=== PATIENT | female | born 1970 | race Caucasian/White ===

== ENCOUNTER 2016-09-03 05:31 | Emergency (ER) | payer MEDICAID ==
[~2016-09-03] VITALS: Ht 152.4 cm; Wt 107.2 kg
[~2016-09-03 05:31] MED LIST: ALB.5NB20 IH; AMOX1TAB PO; SULF1TAB31 PO
[2016-09-03 05:39] VITALS: Ht 152.4 cm; Wt 107.2 kg
[2016-09-03] MEDS ORDERED: ALBUTEROL 0.083% (NEB) 2.5 MG/3 ML AMP HHN STA (06:05)
[2016-09-03] MEDS ORDERED: DEXAMETHASONE 10 MG/ML 1 ML INJ IM ONE (06:30)
[2016-09-03] MEDS ORDERED: IPRATROPIUM (NEB) 0.5 MG/2.5 ML AMP HHN ONE (06:30)
--- NOTE | 2016-09-03 06:35 | ERD ---
ER Documentation Chief Complaint Date/Time DATE: 09/03/16 TIME: 06:34 Chief Complaint SOB x3 days similar to asthma attacks per pt HPI This is a 46-year-old female that presents to the ER with shortness of breath for the last 3 days. Patient has a known history of asthma and states that for the last 3 days she has had wheezing. Patient also complains of a cough that started yesterday. Patient admits to clear sputum. She denies any hemoptysis. Patient denies any chest pain. She denies any recent travel, leg redness or swelling, surgery or oral contraceptive use. Patient denies any fevers or chills. She has not been taking medications for her asthma. ROS 12 point review of systems was done, all negative except per HPI. Medications Home Meds Active Scripts Prednisone* (Prednisone*) 20 Mg Tab, 40 MG PO DAILY for 3 Days, TAB Prov:LIZETTE SZYMANSKI 09/03/16 Albuterol Sulfate* (Proair HFA*) 8.5 Gm Hfa.aer.ad, 2 PUFF INH Q4, #1 INHALER Prov:LIZETTE SZYMANSKI 09/03/16 Sulfamethoxazole-Trimethoprim (Bactrim DS Tablet) 800-160 Mg Tab, 2 TAB PO BID for 14 Days, TAB Prov:BETTYE BASS NP 02/28/15 Amoxicillin/Potassium Clav (AMOXICILLIN-CLAV ER 1,000-62.5) 1 Each Tab.er.12h, 2 EACH PO BID for 14 Days Prov:BETTYE BASS NP 02/28/15 Reported Medications Albuterol Sulfate* (Albuterol Sulfate* Neb) 20 Ml Nebu, 20 ML IH 10/09/12 Allergies Allergies: Coded Allergies: No Known Allergy (Unverified , 06/13/14) PMhx/Soc History of Surgery: Yes (CS) Anesthesia Reaction: No Hx Neurological Disorder: No Hx Respiratory Disorders: Yes (ASTHMA) Hx Cardiac Disorders: No Hx Psychiatric Problems: No Hx Miscellaneous Medical Probl: No (DM) Hx Alcohol Use: No Hx Substance Use: No Hx Tobacco Use: No Smoking Status: Never smoker Physical Exam Vitals Vital Signs Date Time Temp Pulse Resp B/P Pulse Ox O2 Delivery O2 Flow Rate FiO2 09/03/16 06:28 94 18 92 21 09/03/16 05:39 97.9 96 24 142/61 94 Physical Exam GENERAL: The patient is well-developed, well-nourished, in no acute distress. NECK: Cervical spine is non tender with no step off. Supple, no nuchal rigidity HEENT: Atraumatic. Pupils equal, round and reactive to light. Extraocular muscles are grossly intact. Conjunctivae pink, no discharge. Bilateral tympanic membranes are clear with no evidence of erythema, effusion or dulling of the light reflex. Tonsilar erythema with no exudates or uvular deviation. Clear rhinorrhea. RESPIRATORY: Expiratory wheezes in all lung hopper. No rales rhonchi or crackles. HEART: Regular rate and rhythm. No murmurs, clicks, rubs or gallops. EXTREMITIES: No clubbing or cyanosis. Full range of motion. Grossly neurovascularly intact. NEUROLOGIC: Alert and oriented. SKIN: There is no rash. The skin is warm and dry. Results 24 hrs Current Medications Medications (Trade) Dose Ordered Sig/Yelena Route PRN Reason Start Time Stop Time Status Last Admin Dose Admin Dexamethasone (Decadron) 10 mg ONCE ONCE IM 09/03/16 06:30 09/03/16 06:31 DC 09/03/16 06:12 Albuterol (Proventil 0.083% (Neb)) 10 mg ONCE STAT HHN 09/03/16 06:05 09/03/16 06:08 DC 09/03/16 06:23 Ipratropium [place] (Atrovent 0.02% (Neb)) 0.5 mg ONCE ONCE HHN 09/03/16 06:30 09/03/16 06:31 DC 09/03/16 06:23 Procedures/MDM Nebulizing treatment was done with albuterol and Atrovent. Patient was given a Decadron injection without any complications. I reexamined patient and patient stated that she felt significantly better. Her wheezing was improved. This is a 46-year-old female presents to the ER with shortness of breath and wheezing for the last 3 days. Patient has a known history of asthma. Patient' s wheezing was improved here in the ER she felt significantly better. Patient does have a cough, asthma is likely exacerbated by upper respiratory infection. Suspicion for cardiac etiology is low. Patient has denied any chest pain. Suspicion for pulmonary embolism is low. There is no evidence of pneumonia, or pneumothorax on chest x-ray. Patient is well-appearing and afebrile. She will be sent home with albuterol and with prednisone. She is to follow-up with her primary care doctor within 1-2 days or return to ER sooner if symptoms worsen. My medical decision making shared with patient she understands and agrees with plan. Departure Diagnosis: Primary Impression: Asthma attack Condition: Stable LIZETTE SZYMANSKI Sep 03, 2016 06:35
--- NOTE | 2016-09-03 07:24 | RADRPT ---
PROCEDURE: Chest Radiograph. CLINICAL INDICATION: Cough TECHNIQUE: Single frontal chest radiograph. COMPARISON: Chest radiograph 10/09/2012 FINDINGS: The cardiomediastinal silhouette is within normal limits. No infiltrate or effusion is seen. Th e bones are intact. IMPRESSION: 1. Unremarkable chest radiograph. RPTAT: HJBF .Moy Johnson MD, MD Date Time Electronically viewed and signed by .Moy Johnson MD, on 09/03/2016 07:24 .B/
[2016-09-03] MEDS ORDERED: PRED20TA PO (07:27)
[2016-09-03] MEDS ORDERED: ALBU8.5H3 INH (07:27)
[2016-09-03 07:33] VITALS: BP 136/66; PULSE 96; RESP 20; TEMP 98.1
== END 2016-09-03 07:34 | disposition home or self-care (01) ==
LOC: FTE 05:31
DX: J45.901 Unspecified asthma with (acute) exacerbation (principal); E11.9 Type 2 diabetes mellitus without complications
CPT/HCPCS: 71010; 94644; 96372; J1100; Z7502; Z7610

== ENCOUNTER 2016-09-11 04:13 | Emergency (ER) | payer MEDICAID ==
[~2016-09-11] VITALS: Ht 142.2 cm; Wt 106.5 kg
[~2016-09-11 04:13] MED LIST changes: +ALBU8.5H3 INH; +PRED20TA PO
[2016-09-11 04:16] VITALS: Ht 142.2 cm; Wt 106.5 kg
[2016-09-11] MEDS ORDERED: METHYLPREDNISOLONE 125 MG INJ IM STA (04:29)
[2016-09-11] MEDS ORDERED: ALBUTEROL 0.5% (NEB) 2.5 MG/0.5 ML AMP INH STA (04:29)
[2016-09-11] MEDS ORDERED: IPRATROPIUM (NEB) 0.5 MG/2.5 ML AMP NEB STA (04:29)
--- NOTE | 2016-09-11 04:38 | ERD ---
ER Documentation Chief Complaint Date/Time DATE: 09/11/16 TIME: 04:37 Chief Complaint Asthma attack started at 0400. Albuterol taken HPI 46-year-old female presents here in emergency department for complaints of wheezing and cough started at 4 AM today, patient has been having cough since yesterday. Patient does not cough up any phlegm or blood. Patient does not have any dyspnea on exertion or dyspnea on lying down. Patient has been taking albuterol with only mild relief. Patient denies any sick contacts. Patient denies any fever or chills. ROS All systems reviewed and are negative except as per history of present illness. Medications Home Meds Active Scripts Cetirizine Hcl* (Zyrtec*) 10 Mg Capsule, 10 MG PO DAILY, #30 TAB.CHEW Prov:GOLDIE CHEN NP 09/11/16 Khdjusulpiq-S-Hdoceamypa Hb* (Guaifenesin* DM Syrup) 120 Ml Syrup, 10 ML PO Q4H Y for COUGH, #120 ML Prov:GOLDIE CHEN NP 09/11/16 Prednisone* (Prednisone*) 50 Mg Tablet, 50 MG PO DAILY for 5 Days, TAB Prov:GOLDIE CHEN NP 09/11/16 Beclomethasone Dip (Qvar 40) 1 Puff Inha, 2 PUFF INH BID, #1 INHALER Prov:GOLDIE CHEN NP 09/11/16 Albuterol Sulfate* (Proair HFA*) 8.5 Gm Hfa.aer.ad, 2 PUFF INH Q4H Y for WHEEZING AND SOB, #1 INHALER Prov:GOLDIE CHEN NP 09/11/16 Prednisone* (Prednisone*) 20 Mg Tab, 40 MG PO DAILY for 3 Days, TAB Prov:LIZETTE SZYMANSKI 09/03/16 Albuterol Sulfate* (Proair HFA*) 8.5 Gm Hfa.aer.ad, 2 PUFF INH Q4, #1 INHALER Prov:LIZETTE SZYMANSKI 09/03/16 Sulfamethoxazole-Trimethoprim (Bactrim DS Tablet) 800-160 Mg Tab, 2 TAB PO BID for 14 Days, TAB Prov:BETTYE BASS NP 02/28/15 Amoxicillin/Potassium Clav (AMOXICILLIN-CLAV ER 1,000-62.5) 1 Each Tab.er.12h, 2 EACH PO BID for 14 Days Prov:BETTYE BASS NP 02/28/15 Reported Medications Albuterol Sulfate* (Albuterol Sulfate* Neb) 20 Ml Nebu, 20 ML IH 10/09/12 Allergies Allergies: Coded Allergies: No Known Allergy (Unverified , 06/13/14) PMhx/Soc History of Surgery: Yes (CS X1 ) Anesthesia Reaction: No Hx Neurological Disorder: No Hx Respiratory Disorders: Yes (ASTHMA) Hx Cardiac Disorders: No Hx Psychiatric Problems: No Hx Miscellaneous Medical Probl: Yes (PRE DM) Hx Alcohol Use: No Hx Substance Use: No Hx Tobacco Use: No Smoking Status: Never smoker FmHx Family History: No coronary disease, No diabetes, No other Physical Exam Vitals Vital Signs Date Time Temp Pulse Resp B/P Pulse Ox O2 Delivery O2 Flow Rate FiO2 09/11/16 04:34 113 20 93 21 09/11/16 04:16 99.0 110 22 142/83 95 Physical Exam GENERAL: The patient is well developed and appropriate for usual state of health, in no apparent distress. CHEST: Diffuse wheezing and tightness bilaterally. There are no rales, crackles or rhonchi. HEART: Regular rate and rhythm. No murmurs, clicks, rubs or gallops. No S3 or S4. ABDOMEN: Soft, nontender and nondistended. Good bowel sounds. No rebound or guarding. No gross peritonitis. No gross organomegaly or masses. No Ponce sign or McBurney point tenderness. BACK: No midline or flank tenderness. EXTREMITIES: Equal pulses bilaterally. There is no peripheral clubbing, cyanosis or edema. No focal swelling or erythema. Full range of motion. Grossly neurovascularly intact. NEURO: Alert and oriented. Cranial nerves 2-12 intact. Motor strength in all 4 extremities with 5/5 strength. Sensation grossly intact. Normal speech and gait. SKIN: There is no apparent rash or petechia. The skin is warm and dry. HEMATOLOGIC AND LYMPHATIC: There is no evidence of excessive bruising or lymphedema. No gross cervical, axillary, or inguinal lymphadenopathy. Results 24 hrs Current Medications Medications (Trade) Dose Ordered Sig/Yelena Route PRN Reason Start Time Stop Time Status Last Admin Dose Admin Ipratropium [place] (Atrovent 0.02% (Neb)) 0.5 mg ONCE STAT NEB 09/11/16 04:29 09/11/16 04:31 DC 09/11/16 04:34 Albuterol (Proventil 0.5% (Neb)) 10 mg ONCE STAT INH 09/11/16 04:29 09/11/16 04:31 DC 09/11/16 04:34 Methylprednisolone Sodium Succinate (Solu-Medrol) 125 mg ONCE STAT IM 09/11/16 04:29 09/11/16 04:31 DC 09/11/16 04:39 Breathing treatment of albuterol and Atrovent Solu-Medrol IM injection was given here in emergency department, after treatment, patient's lungs sounds are clear and patient's oxygenation is better. Patient verbalized feeling much better. Procedures/MDM Medical Decision Making: Patient symptoms are most likely consistent with acute asthma exacerbation with acute bronchitis, which viral in origin. There is low suspicion for Pneumonia at this time since patients lungs sounds are clear, patient O2 saturation is normal and patient doesnt show any respiratory distress. Patients chest xray doesnt show infiltrates or any other cardiopulmonary emergencies at this time. There is low suspicion for other cardiopulmonary emergencies at this time such as CHF, Pulmonary Embolism, Pneumothorax, Aortic Aneurysm or any other cardiopulmonary emergencies at this time. There is low suspicion for sepsis. Patient appears well and is hemodynamically stable. Fever is controlled with medicines. Disposition: Home. Condition: Stable Prescriptions: Qvar,Albuterol, Guaifenasin DM, Zyrtec, Prednisone. Instructions: Patient is advised to take medications as prescribed. Patient is advised to rest. Patient advised to increase fluid intake, do humidifier at home and if possible, do salt water gargles. Patient is advised that if symptoms are worse, shortness of breath, uncontrolled fever, stridor, vomiting, worst signs and symptoms to return to emergency department immediately. Otherwise, patient is advised to follow up with primary doctor in 5-7 days. Departure Diagnosis: Primary Impression: Asthma with acute exacerbation Asthma severity: unspecified severity Qualified Code: J45.901 - Asthma with acute exacerbation, unspecified asthma severity Additional Impression: Acute bronchitis Bronchitis organism: unspecified organism Qualified Code: J20.9 - Acute bronchitis, unspecified organism Condition: Stable GOLDIE CHEN NP Sep 11, 2016 04:38
--- NOTE | 2016-09-11 05:07 | RADRPT ---
PROCEDURE: CHEST - 1 VIEW CLINICAL INDICATION: 46-year-old female with shortness of breath and asthma. TECHNIQUE: A single frontal AP portable view of the chest was performed. The images were reviewed on a PACS workstation. COMPARISON: Chest x-ray September 03, 2016. FINDINGS: The cardiomediastinal silhouette is within normal limits. There is a shallow inspiration. There is mild bibasilar subsegmental atelectasis. There is no evidence for an infiltrate. There is no evid ence for congestive heart failure. There is no evidence for pneumothorax. The osseous structures are intact. IMPRESSION: Shallow inspiration with mild bibasilar subsegmental atelectasis. .Rafat Rincon MD, Date Time Electronically viewed and signed by .Rafat Rincon MD, on 09/11/2016 05:07 .Melinda/
[2016-09-11] MEDS ORDERED: PRED50TA PO (05:17)
[2016-09-11] MEDS ORDERED: GUAI120S26 PO (05:17)
[2016-09-11] MEDS ORDERED: ALBU8.5H3 INH (05:17)
[2016-09-11] MEDS ORDERED: QVAR40 INH (05:17)
[2016-09-11] MEDS ORDERED: CETI10CA PO (05:17)
[2016-09-11 06:02] VITALS: BP 136/75; PULSE 113; RESP 21; TEMP 98.7
== END 2016-09-11 06:02 | disposition home or self-care (01) ==
LOC: FTE 04:13
DX: J45.901 Unspecified asthma with (acute) exacerbation (principal); J20.9 Acute bronchitis, unspecified
CPT/HCPCS: 71010; 94644; 96372; J2930; Z7502; Z7610

== ENCOUNTER 2016-11-29 07:10 | Emergency (ER) | payer MEDICAID ==
[~2016-11-29] VITALS: Ht 157.5 cm; Wt 107.5 kg
[~2016-11-29 07:10] MED LIST changes: +CETI10CA PO; +GUAI120S26 PO; +PRED50TA PO; +QVAR40 INH
[2016-11-29 07:14] VITALS: Ht 157.5 cm; Wt 107.5 kg
[2016-11-29] MEDS ORDERED: ALBUTEROL 0.083% (NEB) 2.5 MG/3 ML AMP HHN STA (07:34)
[2016-11-29] MEDS ORDERED: IPRATROPIUM (NEB) 0.5 MG/2.5 ML AMP HHN ONE (08:00)
[2016-11-29] MEDS ORDERED: METHYLPREDNISOLONE 125 MG INJ IM ONE (08:00)
[2016-11-29] MEDS ORDERED: ALBU18HF INHALATION (09:35)
[2016-11-29] MEDS ORDERED: PRED20TA PO (09:35)
--- NOTE | 2016-11-29 09:38 | ERD ---
ER Documentation Chief Complaint Date/Time DATE: 11/29/16 TIME: 09:37 Chief Complaint coughing and asthma, no relief w/ inhaler use @ home HPI This 38-year-old female complains of cough and wheezing for last 2 days. She denies productive sputum, fevers. She is using inhaler at home without relief. She denies chest pain or vomiting or abdominal pain. ROS All systems reviewed and are negative except as per history of present illness. Medications Home Meds Active Scripts Albuterol Sulfate* (Ventolin HFA*) 18 Gm Hfa.aer.ad, 2 PUFF INHALATION Q4H for 5 Days, #1 INHALER Prov:JE JIMENEZ MD 11/29/16 Prednisone* (Prednisone*) 20 Mg Tab, 60 MG PO DAILY for 6 Days, #15 TAB 60 mg by mouth for 3 days then 40 mg by mouth for 3 days. Start November 30, 2016 Prov:JE JIMENEZ MD 11/29/16 Cetirizine Hcl* (Zyrtec*) 10 Mg Capsule, 10 MG PO DAILY, #30 TAB.CHEW Prov:GOLDIE CHEN NP 09/11/16 Mlydcxvneur-Q-Xtibgwpqzh Hb* (Guaifenesin* DM Syrup) 120 Ml Syrup, 10 ML PO Q4H Y for COUGH, #120 ML Prov:GOLDIE CHEN NP 09/11/16 Prednisone* (Prednisone*) 50 Mg Tablet, 50 MG PO DAILY for 5 Days, TAB Prov:GOLDIE CHEN NP 09/11/16 Beclomethasone Dip (Qvar 40) 1 Puff Inha, 2 PUFF INH BID, #1 INHALER Prov:GOLDIE CHEN NP 09/11/16 Albuterol Sulfate* (Proair HFA*) 8.5 Gm Hfa.aer.ad, 2 PUFF INH Q4H Y for WHEEZING AND SOB, #1 INHALER Prov:GOLDIE CHEN NP 09/11/16 Prednisone* (Prednisone*) 20 Mg Tab, 40 MG PO DAILY for 3 Days, TAB Prov:LIZETTE SZYMANSKI 09/03/16 Albuterol Sulfate* (Proair HFA*) 8.5 Gm Hfa.aer.ad, 2 PUFF INH Q4, #1 INHALER Prov:LIZETTE SZYMANSKI 09/03/16 Sulfamethoxazole-Trimethoprim (Bactrim DS Tablet) 800-160 Mg Tab, 2 TAB PO BID for 14 Days, TAB Prov:BETTYE BASS Emily TRASH TRUCK DRIVER 02/28/15 Amoxicillin/Potassium Clav (AMOXICILLIN-CLAV ER 1,000-62.5) 1 Each Tab.er.12h, 2 EACH PO BID for 14 Days Prov:BASSBETTYE NAVARRO I. TRASH TRUCK DRIVER 02/28/15 Reported Medications Albuterol Sulfate* (Albuterol Sulfate* Neb) 20 Ml Nebu, 20 ML IH 10/09/12 Allergies Allergies: Coded Allergies: No Known Allergy (Unverified , 11/29/16) PMhx/Soc History of Surgery: Yes (CS X1 ) Anesthesia Reaction: No Hx Neurological Disorder: No Hx Respiratory Disorders: Yes (ASTHMA) Hx Cardiac Disorders: No Hx Psychiatric Problems: No Hx Miscellaneous Medical Probl: Yes (PRE DM) Hx Alcohol Use: No Hx Substance Use: No Hx Tobacco Use: No Smoking Status: Never smoker Physical Exam Vitals Vital Signs Date Time Temp Pulse Resp B/P Pulse Ox O2 Delivery O2 Flow Rate FiO2 11/29/16 07:57 80 19 96 21 11/29/16 07:14 98.4 92 22 135/63 97 Physical Exam Const: [] Alert, [id number]-xslinyyvp per Head: Atraumatic Eyes: Normal Conjunctiva ENT: Normal External Ears, Nose and Mouth. TMs and oropharynx normal. Neck: Full range of motion..~ No meningismus. Resp: Diffuse wheezing and rhonchi without retractions. Cardio: Regular rate and rhythm, no murmurs Abd: Soft, non tender, non distended. Normal bowel sounds Skin: No petechiae or rashes Back: No midline or flank tenderness Ext: No cyanosis, or edema. No calf swelling or Homans sign per Neur: Awake and alert Psych: Normal Mood and Affect Results 24 hrs Current Medications Medications (Trade) Dose Ordered Sig/Yelena Route PRN Reason Start Time Stop Time Status Last Admin Dose Admin Methylprednisolone Sodium Succinate (Solu-Medrol) 125 mg ONCE ONCE IM 11/29/16 08:00 11/29/16 08:01 DC 11/29/16 07:40 Albuterol (Proventil 0.083% (Neb)) 5 mg ONCE STAT HHN 11/29/16 07:34 11/29/16 07:36 DC 11/29/16 07:55 Ipratropium [place] (Atrovent 0.02% (Neb)) 0.5 mg ONCE ONCE HHN 11/29/16 08:00 11/29/16 08:01 DC 11/29/16 07:56 Procedures/MDM Patient is given albuterol Atrovent treatment 1 and had improved breath sounds felt better after observation treatment. She was given Solu-Medrol 125 mg IM. Chest X-ray 1V Interpreted by me: Soft Tissue: No acute abnormalities Bones: No acute abnormalities Mediastinum/Cardiac Silhouette/Lungs: [No acute abnormalities]. Impression- normal 1 view chest x-ray Patient presents with asthma exacerbation without signs or symptoms of respiratory distress, hypoxemia, pneumonia, acute coronary syndrome, additional causes of presenting complaints. She will treated with a course of prednisone taper and Ventolin refill. The patient was stable with no new complaints during the ER course. Clinically, there is no current evidence to suggest meningitis, sepsis, acute abdomen, pneumonia, acute coronary syndrome, pulmonary embolism, or any other emergent condition appearing to require further evaluation or hospitalization. The patient should certainly return for any new or worsening symptoms per the aftercare instructions. They should otherwise follow-up with her primary care doctor for reevaluation this week. Departure Diagnosis: Primary Impression: Asthma attack Condition: Stable Patient Instructions: Asthma, Acute (Adult) Additional Instructions: Cheque otro vez con gruber doctor primario en el proximo mireles or regresa para mas o nueva simptomas. JE JIMENEZ MD Nov 29, 2016 09:38
--- NOTE | 2016-11-29 09:43 | RADRPT ---
PROCEDURE: XR Chest. CLINICAL INDICATION: Shortness of breath. TECHNIQUE: Single frontal view of the chest was obtained. COMPARISON: Chest x-ray 09/11/2016 04:58 a.m. FINDINGS: The soft tissues are generous. Degenerative osteophytes are present in the thoracic spine. The hea rt, cardiomediastinal silhouette and hilar structures are normal. The pulmonary vasculature is ariana l. There is a left-sided aorta. The lungs are clear. The costophrenic angles are normal. IMPRESSION: 1. Spondylosis of the thoracic spine with no evidence of active cardiopulmonary disease. Stable jennifer st compared to 09/11/2016. RPTAT:AAJJ Physician Tanya Date Time Electronically viewed and signed by Kenneth Mcmahon Physician on 11/29/2016 09:43 JEF/
== END 2016-11-29 09:44 | disposition home or self-care (01) ==
LOC: FTE 07:10
DX: J45.901 Unspecified asthma with (acute) exacerbation (principal)
CPT/HCPCS: 71010; 94664; 96372; J2930; Z7502; Z7610

== ENCOUNTER 2017-05-03 07:37 | Emergency (ER) | payer MEDICAID ==
[~2017-05-03] VITALS: Ht 160 cm; Wt 106.9 kg
[~2017-05-03 07:37] MED LIST changes: +ALBU18HF INHALATION
[2017-05-03 07:39] VITALS: Ht 160 cm; Wt 106.9 kg
[2017-05-03] MEDS ORDERED: ALBUTEROL 0.083% (NEB) 2.5 MG/3 ML AMP HHN STA (07:47)
[2017-05-03] MEDS ORDERED: METHYLPREDNISOLONE 125 MG INJ IM ONE (08:00)
[2017-05-03] MEDS ORDERED: IPRATROPIUM (NEB) 0.5 MG/2.5 ML AMP HHN ONE (08:00)
[2017-05-03] MEDS ORDERED: PRED20TA PO (08:27)
[2017-05-03] MEDS ORDERED: ALBU8.5H3 INH (08:27)
--- NOTE | 2017-05-03 08:51 | ERD ---
ER Documentation Chief Complaint Chief Complaint asthma x3 days, no relief w/inhaler HPI This 47-year-old female presents with wheezing for last 3 days. She has a history of asthma and is using her albuterol at home without relief. She denies any fevers, productive mucus, chest pain, vomiting, abdominal pain. ROS All systems reviewed and are negative except as per history of present illness. Medications Home Meds Active Scripts Albuterol Sulfate* (Proair HFA*) 8.5 Gm Hfa.aer.ad, 2 PUFF INH Q4, #1 INHALER Prov:JE JIMENEZ MD 05/03/17 Prednisone* (Prednisone*) 20 Mg Tab, 60 MG PO DAILY for 5 Days, TAB 60 mg by mouth for 2 days, then 40 mg of mouth for 3 days. Start May 04, 2017 Prov:JE JIMENEZ MD 05/03/17 Albuterol Sulfate* (Ventolin HFA*) 18 Gm Hfa.aer.ad, 2 PUFF INHALATION Q4H for 5 Days, #1 INHALER Prov:JE JIMENEZ MD 11/29/16 Prednisone* (Prednisone*) 20 Mg Tab, 60 MG PO DAILY for 6 Days, #15 TAB 60 mg by mouth for 3 days then 40 mg by mouth for 3 days. Start November 30, 2016 Prov:JE JIMENEZ MD 11/29/16 Cetirizine Hcl* (Zyrtec*) 10 Mg Capsule, 10 MG PO DAILY, #30 TAB.CHEW Prov:GOLDIE CHEN NP 09/11/16 Nkblmnotqpo-E-Bxwslihzqv Hb* (Guaifenesin* DM Syrup) 120 Ml Syrup, 10 ML PO Q4H Y for COUGH, #120 ML Prov:GOLDIE CHEN NP 09/11/16 Prednisone* (Prednisone*) 50 Mg Tablet, 50 MG PO DAILY for 5 Days, TAB Prov:GOLDIE CHEN NP 09/11/16 Beclomethasone Dip (Qvar 40) 1 Puff Inha, 2 PUFF INH BID, #1 INHALER Prov:GOLDIE CHEN NP 09/11/16 Albuterol Sulfate* (Proair HFA*) 8.5 Gm Hfa.aer.ad, 2 PUFF INH Q4H Y for WHEEZING AND SOB, #1 INHALER Prov:GOLDIE CHEN NP 09/11/16 Prednisone* (Prednisone*) 20 Mg Tab, 40 MG PO DAILY for 3 Days, TAB Prov:LIZETTE SZYMANSKI Va 09/03/16 Albuterol Sulfate* (Proair HFA*) 8.5 Gm Hfa.aer.ad, 2 PUFF INH Q4, #1 INHALER Prov:LIZETTE SZYMANSKI Va 09/03/16 Sulfamethoxazole-Trimethoprim (Bactrim DS Tablet) 800-160 Mg Tab, 2 TAB PO BID for 14 Days, TAB Prov:BETTYE BASS NP 02/28/15 Amoxicillin/Potassium Clav (AMOXICILLIN-CLAV ER 1,000-62.5) 1 Each Tab.er.12h, 2 EACH PO BID for 14 Days Prov:BETTYE BASS I. DRUG AND ALCOHOL COUNSELOR 02/28/15 Reported Medications Albuterol Sulfate* (Albuterol Sulfate* Neb) 20 Ml Nebu, 20 ML IH 10/09/12 Allergies Allergies: Coded Allergies: No Known Allergy (Unverified , 05/03/17) PMhx/Soc History of Surgery: Yes (CS X1 ) Anesthesia Reaction: No Hx Neurological Disorder: No Hx Respiratory Disorders: Yes (ASTHMA) Hx Cardiac Disorders: No Hx Psychiatric Problems: No Hx Miscellaneous Medical Probl: Yes (PRE DM) Hx Alcohol Use: Yes (Social) Hx Substance Use: No Hx Tobacco Use: No Physical Exam Vitals Vital Signs Date Time Temp Pulse Resp B/P Pulse Ox O2 Delivery O2 Flow Rate FiO2 05/03/17 08:04 85 18 96 21 05/03/17 07:39 97.1 86 18 144/99 95 Physical Exam Const: [] Alert, ffm-vcz-pjetpeakv, obese. Head: Atraumatic Eyes: Normal Conjunctiva ENT: Normal External Ears, Nose and Mouth. Neck: Full range of motion..~ No meningismus. Resp: Clear to auscultation bilaterally. Diffuse wheezing without rales or retractions. Cardio: Regular rate and rhythm, no murmurs Abd: Soft, non tender, non distended. Normal bowel sounds Skin: No petechiae or rashes Back: No midline or flank tenderness Ext: No cyanosis, or edema Neur: Awake and alert Psych: Normal Mood and Affect Results 24 hrs Current Medications Medications (Trade) Dose Ordered Sig/Yelena Route PRN Reason Start Time Stop Time Status Last Admin Dose Admin Methylprednisolone Sodium Succinate (Solu-Medrol) 125 mg ONCE ONCE IM 05/03/17 08:00 05/03/17 08:01 DC 05/03/17 07:53 Albuterol (Proventil 0.083% (Neb)) 5 mg ONCE STAT N 05/03/17 07:47 05/03/17 07:49 DC 05/03/17 08:04 Ipratropium [place] (Atrovent 0.02% (Neb)) 0.5 mg ONCE ONCE HHN 05/03/17 08:00 05/03/17 08:01 DC 05/03/17 08:04 Procedures/MDM Patient is given albuterol treatment to 125 mg IM. Patient clear lungs after observation treatment without rales or wheezing. Patient presents with signs and symptoms of an acute uncomplicated asthma exacerbation without signs of pneumonia, respiratory status or hypoxemia. She will be treated with prednisone , albuterol refill, primary care follow-up and return precautions. The patient was stable with no new complaints during the ER course. Clinically, there is no current evidence to suggest meningitis, sepsis, acute abdomen, pneumonia, acute coronary syndrome, pulmonary embolism, or any other emergent condition appearing to require further evaluation or hospitalization. The patient should certainly return for any new or worsening symptoms per the aftercare instructions. They should otherwise follow-up with her primary care doctor for reevaluation this week. Departure Diagnosis: Primary Impression: Asthma attack Asthma severity: unspecified severity Asthma persistence: unspecified Qualified Code: J45.901 - Exacerbation of asthma, unspecified asthma severity, unspecified whether persistent Condition: Stable Patient Instructions: Asthma, Acute (Adult) Referrals: [facility] (PCP) Additional Instructions: Cheque otro vez con gruber doctor primario en el proximo mireles or regresa para mas o nueva simptomas. JE JIMENEZ MD May 03, 2017 08:51
[2017-05-03 08:53] VITALS: BP 130/82; PULSE 93; RESP 18; TEMP 97.6
== END 2017-05-03 08:50 | disposition home or self-care (01) ==
LOC: FTE 07:37
DX: J45.901 Unspecified asthma with (acute) exacerbation (principal)
CPT/HCPCS: 94664; 96372; J2930; Z7502; Z7610

== ENCOUNTER 2018-01-15 11:42 | Emergency (ER) | END 2018-01-15 15:44 | disposition home or self-care (01) ==

== ENCOUNTER 2018-05-10 14:23 | Emergency (ER) | END 2018-05-10 16:17 | disposition home or self-care (01) ==

== ENCOUNTER 2018-05-14 10:02 | Emergency (ER) | END 2018-05-14 10:45 | disposition home or self-care (01) ==

== ENCOUNTER 2018-06-06 18:21 | Emergency (ER) | payer MEDICAID ==
[~2018-06-06] VITALS: Ht 142.2 cm; Wt 113.4 kg
[~2018-06-06 18:21] MED LIST changes: -ALBU8.5H3 INH; +ALBU8.5H8 INH; +GUAI-173 PO; +IBUP-1542 PO; +MED4DP PO
[2018-06-06 18:25] VITALS: Ht 142.2 cm; Wt 113.4 kg
[2018-06-06] MEDS ORDERED: SODI30SP2 NS (19:00)
[2018-06-06] MEDS ORDERED: D-ME118S24 PO (19:00)
[2018-06-06] MEDS ORDERED: IBUP-1542 PO (19:00)
[2018-06-06] MEDS ORDERED: TYL500 PO (19:00)
--- NOTE | 2018-06-06 19:07 | ERD ---
ER Documentation Chief Complaint Chief Complaint cough/sore throat x 3 days HPI 48-year-old female with history of diabetes and asthma presents for cough, fever, sore throat times 3 days. She states that the fever subjective. The cough is noted to be productive of greenish phlegm. She did not try to take any medications at home. Sore throat was rated 4 out of 10. No other modifying factors. ROS All systems reviewed and are negative except as per history of present illness. Medications Home Meds Active Scripts Sodium Chloride (Saline Nasal [place]) 30 Ml [place], 30 ML NS BID PRN for NASAL CONGESTION, #1 BOTTLE Prov:ТАТЬЯНА JUNIOR DO 06/06/18 D-Methorphan Hb/P-Epd HCl/Bpm (Uleekpddri-Yafgixutigl-Sf Syr) 118 Ml Syrup, 5 ML PO Q4H PRN for COUGH, #1 BOTTLE Prov:ТАТЬЯНА JUNIOR DO 06/06/18 Acetaminophen* (Tylenol*) 500 Mg Tab, 500 MG PO Q4H PRN for MILD PAIN LEVEL 1-3, #30 TAB Prov:ТАТЬЯНА JUNIOR DO 06/06/18 Ibuprofen* (Motrin*) 600 Mg Tab, 600 MG PO Q6H PRN for PAIN AND OR ELEVATED TEMP, #30 TAB Prov:ТАТЬЯНА JUNIOR DO 06/06/18 Ibuprofen* (Motrin*) 600 Mg Tab, 600 MG PO Q6, #15 TAB Prov:JE JIMENEZ MD 05/14/18 Sulfamethoxazole/Trimethoprim* (Bactrim Ds* Tablet) 1 Each Tablet, 1 TAB PO BID for 5 Days, #10 TAB Prov:JE JIMENEZ MD 05/14/18 Albuterol Sulfate* (Ventolin HFA*) 18 Gm Hfa.aer.ad, 2 PUFF INHALATION Q4H, #1 INHALER Prov:JE JIMENEZ MD 05/10/18 Sulfamethoxazole/Trimethoprim* (Bactrim Ds* Tablet) 1 Each Tablet, 1 TAB PO BID for 7 Days, #14 TAB Prov:JE JIMENEZ MD 05/10/18 Prednisone* (Prednisone*) 20 Mg Tab, 40 MG PO DAILY for 4 Days, TAB Start May 11, 2018 Prov:JE JIMENEZ MD 05/10/18 Guaifenesin* (Tussin*) 100 Mg/5 Ml Syrup, 200 MG PO Q6 PRN for COUGH for 3 Days, ML Prov:LIZETTE SZYMANSKI 01/15/18 Albuterol Sulfate* (Ventolin HFA*) 18 Gm Hfa.aer.ad, 2 PUFF INHALATION Q4H, #1 I NHALER Prov:LIZETTE SZYMANSKI 01/15/18 Methylprednisolone* (Medrol* DOSE PACK) 4 Mg/Dose-Pack Tab.ds.pk, 4 MG PO . DIRECTED for 6 Days, PACKET Prov:LIZETTE SZYMANSKI 01/15/18 Albuterol Sulfate* (Proair HFA*) 8.5 Gm Hfa.aer.ad, 2 PUFF INH Q4, #1 INHALER Prov:JE JIMENEZ MD 05/03/17 Prednisone* (Prednisone*) 20 Mg Tab, 60 MG PO DAILY for 5 Days, TAB 60 mg by mouth for 2 days, then 40 mg of mouth for 3 days. Start May 04, 2017 Prov:JE JIMENEZ MD 05/03/17 Albuterol Sulfate* (Ventolin HFA*) 18 Gm Hfa.aer.ad, 2 PUFF INHALATION Q4H for 5 Days, #1 INHALER Prov:JE JIMENEZ MD 11/29/16 Prednisone* (Prednisone*) 20 Mg Tab, 60 MG PO DAILY for 6 Days, #15 TAB 60 mg by mouth for 3 days then 40 mg by mouth for 3 days. Start November 30, 2016 Prov:JE JIMENEZ MD 11/29/16 Cetirizine Hcl* (Zyrtec*) 10 Mg Capsule, 10 MG PO DAILY, #30 TAB.CHEW Prov:GOLDIE CHEN NP 09/11/16 Xarzltqdynp-Y-Lurmcpzrgb Hb* (Guaifenesin* DM Syrup) 120 Ml Syrup, 10 ML PO Q4H PRN for COUGH, #120 ML Prov:GOLDIE CHEN NP 09/11/16 Prednisone* (Prednisone*) 50 Mg Tablet, 50 MG PO DAILY for 5 Days, TAB Prov:GOLDIE CHEN NP 09/11/16 Beclomethasone Dip (Qvar 40) 1 Puff Inha, 2 PUFF INH BID, #1 INHALER Prov:GUSTAVOGOLDIE. BEAD BUILDER 09/11/16 Albuterol Sulfate* (Proair HFA*) 8.5 Gm Hfa.aer.ad, 2 PUFF INH Q4H PRN for WHEEZING AND SOB, #1 INHALER Prov:GOLDIE CHEN GABBI Tucker. BEAD BUILDER 09/11/16 Prednisone* (Prednisone*) 20 Mg Tab, 40 MG PO DAILY for 3 Days, TAB Prov:LIZETTE SZYMANSKI 09/03/16 Albuterol Sulfate* (Proair HFA*) 8.5 Gm Hfa.aer.ad, 2 PUFF INH Q4, #1 INHALER Prov:LIZETTE SZYMANSKI 09/03/16 Sulfamethoxazole-Trimethoprim (Bactrim DS Tablet) 800-160 Mg Tab, 2 TAB PO BID for 14 Days, TAB Prov:BETTYE BASS I. BEAD BUILDER 02/28/15 Amoxicillin/Potassium Clav (AMOXICILLIN-CLAV ER 1,000-62.5) 1 Each Tab.er.12h, 2 EACH PO BID for 14 Days Prov:BETTYE BASS I. BEAD BUILDER 02/28/15 Reported Medications Albuterol Sulfate* (Albuterol Sulfate* Neb) 20 Ml Nebu, 20 ML IH 10/09/12 Allergies Allergies: Coded Allergies: No Known Allergy (Unverified , 06/06/18) PMhx/Soc History of Surgery: Yes (CS X1 ) Anesthesia Reaction: No Hx Neurological Disorder: No Hx Respiratory Disorders: Yes (ASTHMA) Hx Cardiac Disorders: No Hx Psychiatric Problems: No Hx Miscellaneous Medical Probl: Yes (PRE DM) Hx Alcohol Use: Yes (Socially) Hx Substance Use: No Hx Tobacco Use: No Smoking Status: Never smoker Physical Exam Vitals Vital Signs Date Temp Pulse Resp B/P (MAP) Pulse Ox O2 O2 Flow FiO2 Time Delivery Rate 06/06/18 98.8 114 16 141/82 97 19:11 (101) 06/06/18 99.9 115 16 174/88 98 18:25 (116) Physical Exam Const: No acute distress Head: Atraumatic Eyes: Normal Conjunctiva ENT: Normal External Ears, bilateral tympanic memory intact without erythema or bulging noted, nasal congestion noted, oral examination reveals no tonsillar exudates, there is mild erythema posterior, oral mucosa slightly dry. Neck: Full range of motion. No meningismus. Resp: Clear to auscultation bilaterally, no wheezing rales or rhonchi. Cardio: mild tachycardia, no murmurs Skin: No petechiae or rashes Back: No midline or flank tenderness Ext: No cyanosis, or edema Neur: Awake and alert Psych: Normal Mood and Affect Procedures/MDM Medical Decision Making: Differential diagnosis includes but not limited to upper respiratory infection, pneumonia, sepsis. Patient appeared well on physical examination, nontoxic appearing. Lungs were clear to auscultation bilaterally. There is low suspicion for pneumonia, sepsis. Patient likely has an upper respiratory infection, likely viral. Discussed symptomatic treatment with patient who agrees with plan. Patient noted to be tachycardic in the ER. She was noted to be slightly dry on physical exam. The tachycardia is likely from mild dehydration. Patient advised regarding importance of hydration. Patient given prescription for Motrin, Tylenol, Bromfed, nasal saline spray. Patient advised to follow up with PCP in 1-2 days. Patient advised to return to ED for new or worsening symptoms. Patient stable on discharge from the ED. Disclaimer: Inadvertent spelling and grammatical errors are likely due to EHR/dictation software use and do not reflect on the overall quality of patient care. Also, please note that the electronic time recorded on this note does not necessarily reflect the actual time of the patient encounter. Departure Diagnosis: Primary Impression: URI (upper respiratory infection) URI type: unspecified URI Qualified Codes: J06.9 - Acute upper respiratory infection, unspecified Condition: Fair Patient Instructions: Preventing Common Respiratory Infections Referrals: [facility] YOU HAVE RECEIVED A MEDICAL SCREENING EXAM AND THE RESULTS INDICATE THAT YOU DO NOT HAVE A CONDITION THAT REQUIRES URGENT TREATMENT IN THE EMERGENCY DEPARTMENT. FURTHER EVALUATION AND TREATMENT OF YOUR CONDITION CAN WAIT UNTIL YOU ARE SEEN IN YOUR DOCTORS OFFICE WITHIN THE NEXT 1-2 DAYS. IT IS YOUR RESPONSIBILITY TO MAKE AN APPOINTMENT FOR FOLOW-UP CARE. IF YOU HAVE A PRIMARY DOCTOR --you should call your primary doctor and schedule an appointment IF YOU DO NOT HAVE A PRIMARY DOCTOR YOU CAN CALL OUR PHYSICIAN REFERRAL HOTLINE AT IF YOU CAN NOT AFFORD TO SEE A PHYSICIAN YOU CAN CHOSE FROM THE FOLLOWING [facility] [address] [facility] [address] [facility] [address] [facility] [address] [facility] [address] [facility]. [facility] [address] Additional Instructions: Llame al doctor MAANA y markus harshad JOSE MANUEL PARA DENTRO DE 1-2 LENNON.Dgale a la secretaria que nosotros le instruimos hacer esta jose manuel.Avise o llame si gruber condicin se empeora antes de la jose manuel. Regresa aqui si peor o no mejor. ТАТЬЯНА JUNIOR DO Jun 06, 2018 19:07
[2018-06-06 19:11] VITALS: BP 141/82; PULSE 114; RESP 16
== END 2018-06-06 19:15 | disposition home or self-care (01) ==
LOC: FTE 18:21
DX: J06.9 Acute upper respiratory infection, unspecified (principal); E11.9 Type 2 diabetes mellitus without complications; J45.909 Unspecified asthma, uncomplicated
CPT/HCPCS: 99282

== ENCOUNTER 2018-07-25 09:56 | Emergency (ER) | payer MEDICAID ==
[~2018-07-25] VITALS: Ht 162.6 cm; Wt 119.5 kg
[~2018-07-25 09:56] MED LIST changes: +D-ME118S24 PO; +SODI30SP2 NS; +TYL500 PO
[2018-07-25 09:59] VITALS: Ht 162.6 cm; Wt 119.5 kg
[2018-07-25] MEDS ORDERED: IPRATROPIUM (NEB) 0.5 MG/2.5 ML AMP NEB STA (10:26)
[2018-07-25] MEDS ORDERED: SOD CHLORIDE 0.9% 1,000 ML IV STA (10:26)
[2018-07-25] MEDS ORDERED: ALBUTEROL 0.083% (NEB) 2.5 MG/3 ML AMP NEB STA (10:26)
[2018-07-25] MEDS ORDERED: DEXAMETHASONE 10 MG/ML 1 ML INJ IV STA (10:26)
--- NOTE | 2018-07-25 10:28 | ERD ---
ER Documentation Chief Complaint Chief Complaint cough , sob x 3 days HPI 48-year-old female with history of asthma, presents to the emergency department, complaining of 3 days with worsening of cough, wheezing and dyspnea on exertion. The patient also reports subjective fever and general malaise associated with a left lower extremity erythema, induration and pain. The patient has a history of chronic left lower extremity cellulitis. Last course of antibiotics more than 6 months ago. ROS All systems reviewed and are negative except as per history of present illness. Medications Home Meds Active Scripts Albuterol Sulfate* (Proair HFA*) 8.5 Gm Hfa.aer.ad, 2 PUFF INH Q4H PRN for WHEEZING AND SOB, #1 INHALER Prov:KESHA OBREGON MD 07/25/18 Prednisone* (Prednisone*) 20 Mg Tab, 60 MG PO DAILY for 5 Days, TAB Prov:KESHA OBREGON MD 07/25/18 Sulfamethoxazole/Trimethoprim* (Bactrim Ds* Tablet) 1 Each Tablet, 1 TAB PO BID, #20 TAB Prov:KESHA OBREGON MD 07/25/18 Sodium Chloride (Saline Nasal [place]) 30 Ml [place], 30 ML NS BID PRN for NASAL CONGESTION, #1 BOTTLE Prov:ТАТЬЯНА JUNIOR DO 06/06/18 D-Methorphan Hb/P-Epd HCl/Bpm (Hpqnbreril-Vhnawksttou-Tm Syr) 118 Ml Syrup, 5 ML PO Q4H PRN for COUGH, #1 BOTTLE Prov:ТАТЬЯНА JUNIOR DO 06/06/18 Acetaminophen* (Tylenol*) 500 Mg Tab, 500 MG PO Q4H PRN for MILD PAIN LEVEL 1-3, #30 TAB Prov:ТАТЬЯНА JUNIOR DO 06/06/18 Ibuprofen* (Motrin*) 600 Mg Tab, 600 MG PO Q6H PRN for PAIN AND OR ELEVATED TEMP, #30 TAB Prov:ТАТЬЯНА JUNIOR DO 06/06/18 Ibuprofen* (Motrin*) 600 Mg Tab, 600 MG PO Q6, #15 TAB Prov:JE JIMENEZ MD 05/14/18 Sulfamethoxazole/Trimethoprim* (Bactrim Ds* Tablet) 1 Each Tablet, 1 TAB PO BID for 5 Days, #10 TAB Prov:JE JIMENEZ MD 05/14/18 Albuterol Sulfate* (Ventolin HFA*) 18 Gm Hfa.aer.ad, 2 PUFF INHALATION Q4H, #1 INHALER Prov:JE JIMENEZ MD 05/10/18 Sulfamethoxazole/Trimethoprim* (Bactrim Ds* Tablet) 1 Each Tablet, 1 TAB PO BID for 7 Days, #14 TAB Prov:JE JIMENEZ MD 05/10/18 Prednisone* (Prednisone*) 20 Mg Tab, 40 MG PO DAILY for 4 Days, TAB Start May 11, 2018 Prov:JE JIMENEZ MD 05/10/18 Guaifenesin* (Tussin*) 100 Mg/5 Ml Syrup, 200 MG PO Q6 PRN for COUGH for 3 Days, ML Prov:LIZETTE SZYMANSKI 01/15/18 Albuterol Sulfate* (Ventolin HFA*) 18 Gm Hfa.aer.ad, 2 PUFF INHALATION Q4H, #1 INHALER Prov:LIZETTE SZYMANSKI 01/15/18 Methylprednisolone* (Medrol* DOSE PACK) 4 Mg/Dose-Pack Tab.ds.pk, 4 MG PO . DIRECTED for 6 Days, PACKET Prov:LIZETTE SZYMANSKI 01/15/18 Albuterol Sulfate* (Proair HFA*) 8.5 Gm Hfa.aer.ad, 2 PUFF INH Q4, #1 INHALER Prov:JE JIMENEZ MD 05/03/17 Prednisone* (Prednisone*) 20 Mg Tab, 60 MG PO DAILY for 5 Days, TAB 60 mg by mouth for 2 days, then 40 mg of mouth for 3 days. Start May 04, 2017 Prov:JE JIMENEZ MD 05/03/17 Albuterol Sulfate* (Ventolin HFA*) 18 Gm Hfa.aer.ad, 2 PUFF INHALATION Q4H for 5 Days, #1 INHALER Prov:JE JIMENEZ MD 11/29/16 Prednisone* (Prednisone*) 20 Mg Tab, 60 MG PO DAILY for 6 Days, #15 TAB 60 mg by mouth for 3 days then 40 mg by mouth for 3 days. Start November 30, 2016 Prov:JE JIMENEZ MD 11/29/16 Cetirizine Hcl* (Zyrtec*) 10 Mg Capsule, 10 MG PO DAILY, #30 TAB.CHEW Prov:GOLDIE CHEN NP 09/11/16 Bybabohezva-N-Wdbesonssb Hb* (Guaifenesin* DM Syrup) 120 Ml Syrup, 10 ML PO Q4H PRN for COUGH, #120 ML Prov:GOLDIE CHEN NP 09/11/16 Prednisone* (Prednisone*) 50 Mg Tablet, 50 MG PO DAILY for 5 Days, TAB Prov:GOLDIE CHEN INTERNAL RECRUITER 09/11/16 Beclomethasone Dip (Qvar 40) 1 Puff Inha, 2 PUFF INH BID, #1 INHALER Prov:GOLDIE CHEN NP 09/11/16 Albuterol Sulfate* (Proair HFA*) 8.5 Gm Hfa.aer.ad, 2 PUFF INH Q4H PRN for WHEEZING AND SOB, #1 INHALER Prov:GOLDIE CHEN NP 09/11/16 Prednisone* (Prednisone*) 20 Mg Tab, 40 MG PO DAILY for 3 Days, TAB Prov:LIZETTE SZYMANSKI 09/03/16 Albuterol Sulfate* (Proair HFA*) 8.5 Gm Hfa.aer.ad, 2 PUFF INH Q4, #1 INHALER Prov:LIZETTE SZYMANSKI 09/03/16 Sulfamethoxazole-Trimethoprim (Bactrim DS Tablet) 800-160 Mg Tab, 2 TAB PO BID for 14 Days, TAB Prov:BETTYE BASS NP 02/28/15 Amoxicillin/Potassium Clav (AMOXICILLIN-CLAV ER 1,000-62.5) 1 Each Tab.er.12h, 2 EACH PO BID for 14 Days Prov:BETTYE BASS I. INTERNAL RECRUITER 02/28/15 Reported Medications Albuterol Sulfate* (Albuterol Sulfate* Neb) 20 Ml Nebu, 20 ML IH 10/09/12 Allergies Allergies: Coded Allergies: Penicillins (Verified Allergy, Unknown, rash, 07/25/18) PMhx/Soc History of Surgery: Yes (CS X1 ) Anesthesia Reaction: No Hx Neurological Disorder: No Hx Respiratory Disorders: Yes (ASTHMA) Hx Cardiac Disorders: No Hx Psychiatric Problems: No Hx Miscellaneous Medical Probl: Yes (PRE DM) Hx Alcohol Use: Yes (Socially) Hx Substance Use: No Hx Tobacco Use: No FmHx Family History: No diabetes, No coronary disease Physical Exam Vitals Vital Signs Date Temp Pulse Resp B/P (MAP) Pulse Ox O2 O2 Flow FiO2 Time Delivery Rate 07/25/18 98.3 105 18 132/62 100 Room Air 11:55 (85) 07/25/18 86 20 96 21 10:38 07/25/18 98.1 112 20 178/90 95 09:59 (119) Physical Exam Const: No acute distress Head: Atraumatic Eyes: Normal Conjunctiva ENT: Normal External Ears, Nose and Mouth. Neck: Full range of motion. No meningismus. Resp: Decreased respiratory sounds with expiratory wheezing to auscultation bilaterally Cardio: Regular rate and rhythm, no murmurs Abd: Soft, non tender, non distended. Normal bowel sounds Skin: No petechiae or rashes Back: No midline or flank tenderness Ext: Left lower extremity: Significant edema, erythema, the leg is warm to palpation, distal neurovascular exam intact Neur: Awake and alert Psych: Normal Mood and Affect Results 24 hrs Current Medications Medications Dose Sig/Yelena Start Time Status Last (Trade) Ordered Route PRN Stop Time Admin Dose Reason Admin Sodium 1,000 ml @ Q1H STAT 07/25/18 DC 07/25/18 Chloride 1,000 mls/hr IV 10:26 10:46 07/25/18 11:25 Albuterol 5 mg ONCE STAT 07/25/18 DC 07/25/18 (Proventil NEB 10:26 10:38 0.083% (Neb)) 07/25/18 10:30 Ipratropium 0.5 mg ONCE STAT 07/25/18 DC 07/25/18 [place] NEB 10:26 10:38 (Atrovent 07/25/18 10:31 0.02% (Neb)) 10 mg ONCE STAT 07/25/18 DC 07/25/18 Dexamethasone IV 10:26 10:46 (Decadron) 07/25/18 10:31 Ceftriaxone 50 ml @ ONCE ONCE 07/25/18 DC 07/25/18 Sodium 100 mls/hr IVPB 10:30 10:46 07/25/18 10:59 650 mg ONCE ONCE 07/25/18 DC 07/25/18 Acetaminophen PO 11:30 11:38 (Tylenol 07/25/18 11:31 Tab) Procedures/MDM At the time of discharge, vital signs stable, no respiratory distress. D ifferential diagnosis include but not limited to: Respiratory infection bacterial/viral/fungal. Asthma/COPD, pneumonitis, allergies, GERD. Less likely foreign body aspiration, cardiac related, aspiration pneumonia, malignancy. Physical examination and clinical presentation consistent most likely with acute asthma exacerbation with cellulitis of the left lower extremity During the ED course the patient remained stable, received a nebulized treatment, IV antibiotics and steroids in the ED presenting overall improvement of the symptoms, no new complaints. Clinical impression discussed with the patient who agrees with management. The patient is stable to be treated outpatient and will be discharged home. Some side effects of prescribed medications (headache, rash, nausea, vomiting, diarrhea, drowsiness, habituation, bleeding, hypertension, interactions with other medications) were reviewed. The patient was instructed to follow up with the primary care provider in the next 48h. If symptoms persist, worsen or new symptoms develop, then patient should return to the ED immediately. Disclaimer: Inadvertent spelling and grammatical errors are likely due to EHR/dictation software use and do not reflect on the overall quality of patient care. Also, please note that the electronic time recorded on this note does not necessarily reflect the actual time of the patient encounter. Departure Diagnosis: Primary Impression: Asthma exacerbation Additional Impression: Cellulitis of left lower extremity without foot Condition: Stable Additional Instructions: Muchas magdi por [facility] para gruber servicio. Esperamos que en gruber visita a la reggie de emergencia gruber problema medico haya sido solucionado y que se sienta mucho mejor. Para estar seguros que gruber mejoria sigue en proceso, le pedimos el favor de hacer harshad nae de seguimiento medico con gruber doctor primario en los proximos 2-4 mireles. Lleve con usted estos documentos y las medicinas recetadas. Si oracio sintomas empeoran, NO SE ESPERE, por favor regrese a reggie de emergencia INMEDIATAMENTE. En linda que usted no tenga un mdico de atencin primaria: Llame al mdico o clnica comunitaria de referencia que aparece abajo rowdy las horas de consultorio para hacer harshad nae para que le vean. CLINICAS: [facility] [phone] [facility] [phone] [facility] [phone] [address] [place] [id number] [phone] [place] [id number] [phone] [facility]. [phone] KESHA MENDEZ MD Jul 25, 2018 10:28
[2018-07-25] MEDS ORDERED: CEFTRIAXONE 1 GM/50 ML (PMX) 50 ML IVPB ONE (10:30)
[2018-07-25] MEDS ORDERED: ACETAMINOPHEN 325 MG TAB PO ONE (11:30)
[2018-07-25] MEDS ORDERED: SULF1TAB31 PO (11:31)
[2018-07-25] MEDS ORDERED: ALBU8.5H8 INH (11:31)
[2018-07-25] MEDS ORDERED: PRED20TA PO (11:31)
[2018-07-25 11:55] VITALS: BP 132/62; PULSE 105; RESP 18
== END 2018-07-25 11:56 | disposition home or self-care (01) ==
LOC: FTE 09:56
DX: J45.901 Unspecified asthma with (acute) exacerbation (principal); L03.116 Cellulitis of left lower limb
CPT/HCPCS: 94664; 96365; 96375; J0696; J1100; J7030; Z7502; Z7610

== ENCOUNTER 2018-08-30 22:20 | Emergency (ER) | payer MEDICAID ==
[~2018-08-30] VITALS: Ht 142.2 cm; Wt 111.0 kg
[2018-08-30 22:29] VITALS: Ht 142.2 cm; Wt 111.0 kg
--- NOTE | 2018-08-31 02:29 | ERD ---
ER Documentation Chief Complaint Chief Complaint SOB, COUGH X'S 3 DAYS HX OF ASTHMA; RAN OUT OF INHALER THURSDAY HPI 48-year-old female, with history of asthma, presents the emergency department, complaining of 3 days with upper respiratory symptoms including cough and wheezing. She run out of her inhaler 3 days ago. She denies chest pain, no fever or chills. ROS All systems reviewed and are negative except as per history of present illness. Medications Home Meds Active Scripts Albuterol Sulfate* (Proair HFA*) 8.5 Gm Hfa.aer.ad, 2 PUFF INH Q4H PRN for WHEEZING AND SOB, #1 INHALER Prov:KESHA OBREGON MD 07/25/18 Prednisone* (Prednisone*) 20 Mg Tab, 60 MG PO DAILY for 5 Days, TAB Prov:KESHA OBREGON MD 07/25/18 Sulfamethoxazole/Trimethoprim* (Bactrim Ds* Tablet) 1 Each Tablet, 1 TAB PO BID, #20 TAB Prov:KESHA OBREGON MD 07/25/18 Sodium Chloride (Saline Nasal [place]) 30 Ml [place], 30 ML NS BID PRN for NASAL CONGESTION, #1 BOTTLE Prov:ТАТЬЯНА JUNIOR DO 06/06/18 D-Methorphan Hb/P-Epd HCl/Bpm (Jzsctaljyk-Qbtuzstclpe-Xd Syr) 118 Ml Syrup, 5 ML PO Q4H PRN for COUGH, #1 BOTTLE Prov:ТАТЬЯНА JUNIOR DO 06/06/18 Acetaminophen* (Tylenol*) 500 Mg Tab, 500 MG PO Q4H PRN for MILD PAIN LEVEL 1-3, #30 TAB Prov:ТАТЬЯНА JUNIOR DO 06/06/18 Ibuprofen* (Motrin*) 600 Mg Tab, 600 MG PO Q6H PRN for PAIN AND OR ELEVATED TEMP, #30 TAB Prov:ТАТЬЯНА JUNIOR DO 06/06/18 Ibuprofen* (Motrin*) 600 Mg Tab, 600 MG PO Q6, #15 TAB Prov:JE JIMENEZ MD 05/14/18 Sulfamethoxazole/Trimethoprim* (Bactrim Ds* Tablet) 1 Each Tablet, 1 TAB PO BID for 5 Days, #10 TAB Prov:JE JIMENEZ MD 05/14/18 Albuterol Sulfate* (Ventolin HFA*) 18 Gm Hfa.aer.ad, 2 PUFF INHALATION Q4H, #1 INHALER Prov:JE JIMENEZ MD 05/10/18 Sulfamethoxazole/Trimethoprim* (Bactrim Ds* Tablet) 1 Each Tablet, 1 TAB PO BID for 7 Days, #14 TAB Prov:JE JIMENEZ MD 05/10/18 Prednisone* (Prednisone*) 20 Mg Tab, 40 MG PO DAILY for 4 Days, TAB Start May 11, 2018 Prov:JE JIMENEZ MD 05/10/18 Guaifenesin* (Tussin*) 100 Mg/5 Ml Syrup, 200 MG PO Q6 PRN for COUGH for 3 Days, ML Prov:LIZETTE SZYMANSKI 01/15/18 Albuterol Sulfate* (Ventolin HFA*) 18 Gm Hfa.aer.ad, 2 PUFF INHALATION Q4H, #1 INHALER Prov:LIZETTE SZYMANSKI 01/15/18 Methylprednisolone* (Medrol* DOSE PACK) 4 Mg/Dose-Pack Tab.ds.pk, 4 MG PO . DIRECTED for 6 Days, PACKET Prov:LIZETTE SZYMANSKI 01/15/18 Albuterol Sulfate* (Proair HFA*) 8.5 Gm Hfa.aer.ad, 2 PUFF INH Q4, #1 INHALER Prov:JE JIMENEZ MD 05/03/17 Prednisone* (Prednisone*) 20 Mg Tab, 60 MG PO DAILY for 5 Days, TAB 60 mg by mouth for 2 days, then 40 mg of mouth for 3 days. Start May 04, 2017 Prov:JE JIMENEZ MD 05/03/17 Albuterol Sulfate* (Ventolin HFA*) 18 Gm Hfa.aer.ad, 2 PUFF INHALATION Q4H for 5 Days, #1 INHALER Prov:JE JIMENEZ MD 11/29/16 Prednisone* (Prednisone*) 20 Mg Tab, 60 MG PO DAILY for 6 Days, #15 TAB 60 mg by mouth for 3 days then 40 mg by mouth for 3 days. Start November 30, 2016 Prov:JE JIMENEZ MD 11/29/16 Cetirizine Hcl* (Zyrtec*) 10 Mg Capsule, 10 MG PO DAILY, #30 TAB.CHEW Prov:GOLDIE CHEN NP 09/11/16 Ypkebuttduj-B-Exbzguwxty Hb* (Guaifenesin* DM Syrup) 120 Ml Syrup, 10 ML PO Q4H PRN for COUGH, #120 ML Prov:GOLDIE CHEN NP 09/11/16 Prednisone* (Prednisone*) 50 Mg Tablet, 50 MG PO DAILY for 5 Days, TAB Prov:GOLDIE CHEN AIR COMPRESSOR OPERATOR 09/11/16 Beclomethasone Dip (Qvar 40) 1 Puff Inha, 2 PUFF INH BID, #1 INHALER Prov:GOLDIE CHEN NP 09/11/16 Albuterol Sulfate* (Proair HFA*) 8.5 Gm Hfa.aer.ad, 2 PUFF INH Q4H PRN for WHEEZING AND SOB, #1 INHALER Prov:GOLDIE CHEN NP 09/11/16 Prednisone* (Prednisone*) 20 Mg Tab, 40 MG PO DAILY for 3 Days, TAB Prov:LIZETTE SZYMANSKI 09/03/16 Albuterol Sulfate* (Proair HFA*) 8.5 Gm Hfa.aer.ad, 2 PUFF INH Q4, #1 INHALER Prov:LIZETTE SZYMANSKI 09/03/16 Sulfamethoxazole-Trimethoprim (Bactrim DS Tablet) 800-160 Mg Tab, 2 TAB PO BID for 14 Days, TAB Prov:BETTYE BASS I. AIR COMPRESSOR OPERATOR 02/28/15 Amoxicillin/Potassium Clav (AMOXICILLIN-CLAV ER 1,000-62.5) 1 Each Tab.er.12h, 2 EACH PO BID for 14 Days Prov:BETTYE BASS I. AIR COMPRESSOR OPERATOR 02/28/15 Reported Medications Albuterol Sulfate* (Albuterol Sulfate* Neb) 20 Ml Nebu, 20 ML IH 10/09/12 Allergies Allergies: Coded Allergies: Penicillins (Verified Allergy, Unknown, rash, 07/25/18) PMhx/Soc History of Surgery: Yes (CS X1 ) Anesthesia Reaction: No Hx Neurological Disorder: No Hx Respiratory Disorders: Yes (ASTHMA) Hx Cardiac Disorders: No Hx Psychiatric Problems: No Hx Miscellaneous Medical Probl: Yes (PRE DM) Hx Alcohol Use: Yes (Socially) Hx Substance Use: No Hx Tobacco Use: No Physical Exam Vitals Vital Signs Date Temp Pulse Resp B/P (MAP) Pulse Ox O2 O2 Flow FiO2 Time Delivery Rate 08/30/18 98.9 104 22 158/68 95 22:29 (98) Physical Exam Const: No acute distress Head: Atraumatic Eyes: Normal Conjunctiva ENT: Normal External Ears, Nose and Mouth. Neck: Full range of motion. No meningismus. Resp: Clear to auscultation bilaterally Cardio: Regular rate and rhythm, no murmurs Abd: Soft, non tender, non distended. Normal bowel sounds Skin: No petechiae or rashes Back: No midline or flank tenderness Ext: No cyanosis, or edema Neur: Awake and alert Psych: Normal Mood and Affect Procedures/MDM At the time of discharge, vital signs stable, no respiratory distress. Differential diagnosis include but not limited to: Respiratory infection bacterial/viral/fungal. Asthma/COPD, pneumonitis, allergies, GERD. Less likely foreign body aspiration, cardiac related, aspiration pneumonia, malignancy. Physical examination and clinical presentation consistent most likely with acute asthma exacerbation with early superimposed bacterial infection. During the ED course the patient remained stable, received a nebulized treatment and steroids in the ED presenting overall improvement of the symptoms, no new complaints. Clinical impression discussed with the patient who agrees with management. The patient is stable to be treated outpatient and will be discharged home. Some side effects of prescribed medications (headache, rash, nausea, vomiting, diarrhea, drowsiness, habituation, bleeding, hypertension, interactions with other medications) were reviewed. The patient was instructed to follow up with the primary care provider in the next 48h. If symptoms persist, worsen or new symptoms develop, then patient should return to the ED immediately. Disclaimer: Inadvertent spelling and grammatical errors are likely due to EHR/dictation software use and do not reflect on the overall quality of patient care. Also, please note that the electronic time recorded on this note does not necessarily reflect the actual time of the patient encounter. Departure Diagnosis: Primary Impression: Asthma exacerbation Condition: Stable Additional Instructions: Muchas magdi por [facility] para gruber servicio. Esperamos que en gruber visita a la reggie de emergencia gruber problema medico haya sido solucionado y que se sienta mucho mejor. Para estar seguros que gruber mejoria sigue en proceso, le pedimos el favor de hacer harshad nae de seguimiento medico con gruber doctor primario en los proximos 2-4 mireles. Lleve con usted estos documentos y las medicinas recetadas. Si oracio sintomas empeoran, NO SE ESPERE, por favor regrese a reggie de emergencia INMEDIATAMENTE. En linda que usted no tenga un mdico de atencin primaria: Llame al mdico o clnica comunitaria de referencia que aparece abajo rowdy las horas de consultorio para hacer harshad nae para que le vean. CLINICAS: [facility] [phone] [facility] [phone] [facility] [phone] [facility] [phone] [facility] [phone] [address] [facility]. [phone] KESHA MENDEZ MD Aug 31, 2018 02:29
[2018-08-31] MEDS ORDERED: predniSONE 20 MG TAB PO STA (02:36)
[2018-08-31] MEDS ORDERED: ALBUTEROL 0.083% (NEB) 2.5 MG/3 ML AMP NEB STA (02:36)
[2018-08-31] MEDS ORDERED: IPRATROPIUM (NEB) 0.5 MG/2.5 ML AMP NEB STA (02:36)
[2018-08-31] MEDS ORDERED: AZIT250T PO (03:12)
[2018-08-31] MEDS ORDERED: ALBU8.5H8 INH (03:12)
[2018-08-31] MEDS ORDERED: PRED20TA PO (03:12)
[2018-08-31 03:37] VITALS: BP 136/64; PULSE 95; RESP 20
== END 2018-08-31 03:38 | disposition home or self-care (01) ==
LOC: FTE 22:20
DX: J45.901 Unspecified asthma with (acute) exacerbation (principal)
CPT/HCPCS: 94664; J7512; Z7502; Z7610

== ENCOUNTER 2018-09-27 10:12 | Emergency (ER) | payer MEDICAID ==
[~2018-09-27] VITALS: Ht 149.9 cm; Wt 111.6 kg
[~2018-09-27 10:12] MED LIST changes: +AZIT250T PO; +GUAI120S25 PO; -GUAI120S26 PO
[2018-09-27 10:22] VITALS: Ht 149.9 cm; Wt 111.6 kg
[2018-09-27] MEDS ORDERED: ALBUTEROL 0.083% (NEB) 2.5 MG/3 ML AMP NEB STA (11:02)
[2018-09-27] MEDS ORDERED: DEXAMETHASONE 10 MG/ML 1 ML INJ IM STA (11:02)
[2018-09-27] MEDS ORDERED: IPRATROPIUM (NEB) 0.5 MG/2.5 ML AMP NEB STA (11:02)
--- NOTE | 2018-09-27 11:04 | ERD ---
ER Documentation Chief Complaint Chief Complaint asthma exacerbation,hx asthma,c/o back pain HPI 48-year-old female, with history of asthma and diabetes, presents emergency department, complaining of 2 days with worsening of upper respiratory symptoms including cough, the patient also reports subjective fever, sore throat and general malaise. The patient has been using her inhaler without improvement of the symptoms. ROS All systems reviewed and are negative except as per history of present illness. Medications Home Meds Active Scripts Nebulizer (Compact Compressor Nebulizer) 1 Each Each, EACH MC, #1 Prov:KESHA OBREGON MD 09/27/18 Albuterol Sulfate* (Proair HFA*) 8.5 Gm Hfa.aer.ad, 2 PUFF INH Q4, #1 INHALER Prov:KESHA OBREGON MD 09/27/18 Prednisone* (Prednisone*) 20 Mg Tab, 40 MG PO DAILY for 4 Days, TAB Prov:KESHA OBREGON MD 09/27/18 Albuterol Sulfate* (Albuterol Sulfate* Neb) 0.083%-3 Ml Neb, 2.5 MG NEB Q4 PRN for SHORTNESS OF BREATH, #30 EA Prov:KESHA OBREGON MD 09/27/18 Albuterol Sulfate* (Proair HFA*) 8.5 Gm Hfa.aer.ad, 2 PUFF INH Q4, #1 INHALER Prov:KESHA OBREGON MD 08/31/18 Prednisone* (Prednisone*) 20 Mg Tab, 60 MG PO DAILY for 4 Days, TAB Prov:KESHA OBREGON MD 08/31/18 Azithromycin* (Zithromax*) 250 Mg Tablet, 250 MG PO .ZPACK DIRECTED, #6 TAB TAKE 500 MG (2 TABS) THE FIRST DAY THEN 250 MG (1 TAB) DAYS 2-5 Prov:KESHA OBREGON MD 08/31/18 Albuterol Sulfate* (Proair HFA*) 8.5 Gm Hfa.aer.ad, 2 PUFF INH Q4H PRN for WHEEZING AND SOB, #1 INHALER Prov:KESHA OBREGON MD 07/25/18 Prednisone* (Prednisone*) 20 Mg Tab, 60 MG PO DAILY for 5 Days, TAB Prov:KESHA OBREGON MD 07/25/18 Sulfamethoxazole/Trimethoprim* (Bactrim Ds* Tablet) 1 Each Tablet, 1 TAB PO BID, #20 TAB Prov:KESHA OBREGON MD 07/25/18 Sodium Chloride (Saline Nasal [place]) 30 Ml [place], 30 ML NS BID PRN for NASAL CONGESTION, #1 BOTTLE Prov:ТАТЬЯНА JUNIOR DO 06/06/18 D-Methorphan Hb/P-Epd HCl/Bpm (Gzepzafynz-Wuxifepsbic-Cr Syr) 118 Ml Syrup, 5 ML PO Q4H PRN for COUGH, #1 BOTTLE Prov:ТАТЬЯНА JUNIOR DO 06/06/18 Acetaminophen* (Tylenol*) 500 Mg Tab, 500 MG PO Q4H PRN for MILD PAIN LEVEL 1-3, #30 TAB Prov:ТАТЬЯНА JUNIOR DO 06/06/18 Ibuprofen* (Motrin*) 600 Mg Tab, 600 MG PO Q6H PRN for PAIN AND OR ELEVATED TEMP, #30 TAB Prov:ТАТЬЯНА JUNIOR DO 06/06/18 Ibuprofen* (Motrin*) 600 Mg Tab, 600 MG PO Q6, #15 TAB Prov:JE JIMENEZ MD 05/14/18 Sulfamethoxazole/Trimethoprim* (Bactrim Ds* Tablet) 1 Each Tablet, 1 TAB PO BID for 5 Days, #10 TAB Prov:JE JIMENEZ MD 05/14/18 Albuterol Sulfate* (Ventolin HFA*) 18 Gm Hfa.aer.ad, 2 PUFF INHALATION Q4H, #1 INHALER Prov:JE JIMENEZ MD 05/10/18 Sulfamethoxazole/Trimethoprim* (Bactrim Ds* Tablet) 1 Each Tablet, 1 TAB PO BID for 7 Days, #14 TAB Prov:JE JIMENEZ MD 05/10/18 Prednisone* (Prednisone*) 20 Mg Tab, 40 MG PO DAILY for 4 Days, TAB Start May 11, 2018 Prov:JE JIMENEZ MD 05/10/18 Guaifenesin* (Tussin*) 100 Mg/5 Ml Syrup, 200 MG PO Q6 PRN for COUGH for 3 Days, ML Prov:LIZETTE SZYMANSKI 01/15/18 Albuterol Sulfate* (Ventolin HFA*) 18 Gm Hfa.aer.ad, 2 PUFF INHALATION Q4H, #1 INHALER Prov:LIZETTE SZYMANSKI Va 01/15/18 Methylprednisolone* (Medrol* DOSE PACK) 4 Mg/Dose-Pack Tab.ds.pk, 4 MG PO . DIRECTED for 6 Days, PACKET Prov:LIZETTE SZYMANSKI Va 01/15/18 Albuterol Sulfate* (Proair HFA*) 8.5 Gm Hfa.aer.ad, 2 PUFF INH Q4, #1 INHALER Prov:JE JIMENEZ MD 05/03/17 Prednisone* (Prednisone*) 20 Mg Tab, 60 MG PO DAILY for 5 Days, TAB 60 mg by mouth for 2 days, then 40 mg of mouth for 3 days. Start May 04, 2017 Prov:JE JIMENEZ MD 05/03/17 Albuterol Sulfate* (Ventolin HFA*) 18 Gm Hfa.aer.ad, 2 PUFF INHALATION Q4H for 5 Days, #1 INHALER Prov:JE JIMENEZ MD 11/29/16 Prednisone* (Prednisone*) 20 Mg Tab, 60 MG PO DAILY for 6 Days, #15 TAB 60 mg by mouth for 3 days then 40 mg by mouth for 3 days. Start November 30, 2016 Prov:JE JIMENEZ MD 11/29/16 Cetirizine Hcl* (Zyrtec*) 10 Mg Capsule, 10 MG PO DAILY, #30 TAB.CHEW Prov:GOLDIE CHEN NP 09/11/16 Anwfumrbraa-M-Noywahjrqu Hb* (Guaifenesin* DM Syrup) 120 Ml Syrup, 10 ML PO Q4H PRN for COUGH, #120 ML Prov:GOLDIE CHEN NP 09/11/16 Prednisone* (Prednisone*) 50 Mg Tablet, 50 MG PO DAILY for 5 Days, TAB Prov:GOLDIE CHEN NP 09/11/16 Beclomethasone Dip (Qvar 40) 1 Puff Inha, 2 PUFF INH BID, #1 INHALER Prov:GOLDIE CHEN NP 09/11/16 Albuterol Sulfate* (Proair HFA*) 8.5 Gm Hfa.aer.ad, 2 PUFF INH Q4H PRN for WHEEZING AND SOB, #1 INHALER Prov:GOLDIE CHEN NP 09/11/16 Prednisone* (Prednisone*) 20 Mg Tab, 40 MG PO DAILY for 3 Days, TAB Prov:LIZETTE SZYMANSKI Va 09/03/16 Albuterol Sulfate* (Proair HFA*) 8.5 Gm Hfa.aer.ad, 2 PUFF INH Q4, #1 INHALER Prov:LIZETTE SZYMANSKI Va 09/03/16 Sulfamethoxazole-Trimethoprim (Bactrim DS Tablet) 800-160 Mg Tab, 2 TAB PO BID for 14 Days, TAB Prov:BETTYE BASS NP 02/28/15 Amoxicillin/Potassium Clav (AMOXICILLIN-CLAV ER 1,000-62.5) 1 Each Tab.er.12h, 2 EACH PO BID for 14 Days Prov:BETTYE BASS NP 02/28/15 Reported Medications Albuterol Sulfate* (Albuterol Sulfate* Neb) 20 Ml Nebu, 20 ML IH 10/09/12 Allergies Allergies: Coded Allergies: Penicillins (Verified Allergy, Unknown, rash, 09/27/18) PMhx/Soc History of Surgery: Yes (CS X1 ) Anesthesia Reaction: No Hx Neurological Disorder: No Hx Respiratory Disorders: Yes (ASTHMA) Hx Cardiac Disorders: No Hx Psychiatric Problems: No Hx Miscellaneous Medical Probl: Yes ( DM) Hx Alcohol Use: Yes (Socially) Hx Substance Use: No Hx Tobacco Use: No Smoking Status: Never smoker Physical Exam Vitals Vital Signs Date Temp Pulse Resp B/P (MAP) Pulse Ox O2 O2 Flow FiO2 Time Delivery Rate 09/27/18 98.1 88 18 143/78 97 Room Air 12:48 (99) 09/27/18 88 20 94 21 12:17 09/27/18 90 20 96 21 11:25 09/27/18 97.0 91 19 161/102 93 10:22 (121) Physical Exam Patient alert, oriented, mild respiratory distress with cough. HEAD: Normocephalic, atraumatic. EYES: PERRLA, EOMI, Sclera and conjunctiva appear normal. NOSE: clear rhinorrhea . EARS: Canals clear, tympanic membranes WNL. MOUTH: normal lips and tongue, no oral lesions. THROAT: Erythema of the oropharynx, no tonsillar exudates. NECK: Supple, No lymphadenopathy. Full ROM without pain or tenderness. HEART: RRR, no rubs, murmurs, clicks or gallops. LUNGS: Bilateral inspiratory and expiratory wheezing to auscultation. ABDOMEN: Soft, non-tender without masses or hepatosplenomegaly. EXTREMITIES: No edema bilaterally. BACK: Full ROM, no deformity, normal back exam NEURO: Cranial nerves grossly intact, no motor or sensory deficit SKIN: No rashes, no petechia Results 24 hrs Current Medications Medications Dose Sig/Yelena Start Time Status Last (Trade) Ordered Route PRN Stop Time Admin Dose Reason Admin Albuterol 5 mg ONCE STAT 09/27/18 DC 09/27/18 (Proventil NEB 11:02 11:25 0.083% (Neb)) 09/27/18 11:10 Ipratropium 0.5 mg ONCE STAT 09/27/18 DC 09/27/18 [place] NEB 11:02 11:24 (Atrovent 09/27/18 11:10 0.02% (Neb)) 10 mg ONCE STAT 09/27/18 DC 09/27/18 Dexamethasone IM 11:02 11:15 (Decadron) 09/27/18 11:10 Albuterol 5 mg ONCE STAT 09/27/18 DC 09/27/18 (Proventil HHN 12:08 12:17 0.083% (Neb)) 09/27/18 12:09 Ipratropium 0.5 mg ONCE ONCE 09/27/18 DC 09/27/18 [place] HHN 12:30 12:17 (Atrovent 09/27/18 12:31 0.02% (Neb)) Patient: VEENA PEPE : 1970 Age: 48 Sex: F MR #: [id number] DOS: 09/27/18 1105 Ordering MD: KESHA OBREGON MD Location: [facility] Room/Bed: PROCEDURE: XR Chest PA and Lateral CLINICAL INDICATION: Worsening cough, wheezing TECHNIQUE: PA and Lateral views of the chest were obtained. COMPARISON: 01/15/2018 FINDINGS: Cardiovascular: The cardiovascular silhouette appears unremarkable. Lung Heath: The lung heath appear clear with no nodule, alveolar infiltrate, or interstitial prominence evident. Pleural Spaces: No pneumothorax is identified and no effusion is evident. Osseous Structures: Moderate diffuse degenerative enthesopathy of the thoracic spine is noted. Soft Tissues: The soft tissues appear generous. IMPRESSION: 1. Stable chest without evidence of active cardiopulmonary disease. 2. Moderate degenerative enthesopathy again seen diffusely through the thoracic spine. Procedures/MDM At the time of discharge, vital signs stable, no respiratory distress. Differential diagnosis include but not limited to: Respiratory infection bacterial/viral/fungal. Asthma/COPD, pneumonitis, allergies, GERD. Less likely foreign body aspiration, cardiac related, aspiration pneumonia, malignancy. Physical examination and clinical presentation consistent most likely with acute asthma exacerbation with early superimposed bacterial infection. During the ED course the patient remained stable, received a nebulized treatment and steroids in the ED presenting overall improvement of the symptoms, no new complaints. Clinical impression discussed with the patient who agrees with management. The patient is stable to be treated outpatient and will be discharged home. Some side effects of prescribed medications (headache, rash, nausea, vomiting, diarrhea, drowsiness, habituation, bleeding, hypertension, interactions with other medications) were reviewed. The patient was instructed to follow up with the primary care provider in the next 48h. If symptoms persist, worsen or new symptoms develop, then patient should return to the ED immediately. Disclaimer: Inadvertent spelling and grammatical errors are likely due to EHR/dictation software use and do not reflect on the overall quality of patient care. Also, please note that the electronic time recorded on this note does not necessarily reflect the actual time of the patient encounter. Departure Diagnosis: Primary Impression: Asthma with acute exacerbation Condition: Stable Additional Instructions: Muchas magdi por [facility] para gruber servicio. Esperamos que en gruber visita a la reggie de emergencia gruber problema medico haya sido solucionado y que se sienta mucho mejor. Para estar seguros que gruber mejoria sigue en proceso, le pedimos el favor de hacer harshad nae de seguimiento medico con gruber doctor primario en los proximos 2-4 mireles. Lleve con usted estos documentos y las medicinas recetadas. Si oracio sintomas empeoran, NO SE ESPERE, por favor regrese a reggie de emergencia INMEDIATAMENTE. En linda que usted no tenga un mdico de atencin primaria: Llame al mdico o clnica comunitaria de referencia que aparece abajo rowdy las horas de consultorio para hacer harshad nae para que le vean. CLINICAS: [facility] [phone] [address] [facility] [phone] [address] [facility] [phone] [address] [facility] [phone] [address] [facility] [phone] [address] [facility]. [phone] KESHA MENDEZ MD Sep 27, 2018 11:04
[2018-09-27] MEDS ORDERED: ALBUTEROL 0.083% (NEB) 2.5 MG/3 ML AMP HHN STA (12:08)
[2018-09-27] MEDS ORDERED: NEBU1KIT3 MC (12:17)
[2018-09-27] MEDS ORDERED: ALBU8.5H8 INH (12:17)
[2018-09-27] MEDS ORDERED: ALBU2.5V3 NEB (12:17)
[2018-09-27] MEDS ORDERED: PRED20TA PO (12:17)
[2018-09-27] MEDS ORDERED: IPRATROPIUM (NEB) 0.5 MG/2.5 ML AMP HHN ONE (12:30)
[2018-09-27 12:48] VITALS: BP 143/78; PULSE 88; RESP 18
== END 2018-09-27 12:50 | disposition home or self-care (01) ==
LOC: FTE 10:12
DX: J45.901 Unspecified asthma with (acute) exacerbation (principal); E11.9 Type 2 diabetes mellitus without complications; R05 Cough
CPT/HCPCS: 71046; 94640; 94664; 96372; J1100; Z7502; Z7610

== ENCOUNTER 2018-11-09 16:27 | Emergency (ER) | payer MEDICAID ==
[~2018-11-09] VITALS: Ht 149.9 cm; Wt 111.2 kg
[~2018-11-09 16:27] MED LIST changes: +ALBU2.5V3 NEB; +NEBU1KIT3 MC
[2018-11-09 16:52] VITALS: Ht 149.9 cm; Wt 111.2 kg
[2018-11-09] MEDS ORDERED: ALBUTEROL 0.5% (NEB) 2.5 MG/0.5 ML AMP INH STA (18:05)
--- NOTE | 2018-11-09 18:51 | ERD ---
ER Documentation Chief Complaint Chief Complaint cough x2 wks, hx: asthma HPI 48-year-old female presents with history of asthma and coughing x2 weeks. Patient reports she went to her primary care provider 2 weeks ago who gave her an albuterol inhaler in addition to prednisone 10 mg which she finished. She states she did not receive any significant benefit from the steroids and she is using her inhaler twice a day currently. States she has been coughing white phlegm for the past 2 weeks in addition to severe wheezing. She denies coughing up any blood. Reports that she is not a smoker and reports a history of diabetes. She denies any respiratory compromise. ROS All systems reviewed and are negative except as per history of present illness. Medications Home Meds Active Scripts Prednisone* (Prednisone*) 20 Mg Tab, 40 MG PO DAILY for 5 Days, #5 TAB Prov:BENNIE BAZZI PA-C 11/09/18 Budesonide-Formoterol Fumarate* (Symbicort*) 80-4.5 Mcg Hfa.aer.ad, 2 PUFF INHALATION BID for 30 Days, BOTTLE Prov:BENNIE BAZZI PA-C 11/09/18 Azithromycin* (Zithromax*) 500 Mg Tablet, 500 MG PO DAILY for 5 Days, TAB Prov:BENNIE BAZZI PA-C 11/09/18 Benzonatate* (Tessalon Perle*) 100 Mg Capsule, 100 MG PO Q8H PRN for COUGH, #30 CAP Prov:BENNIE BAZZI PA-C 11/09/18 Nebulizer (Compact Compressor Nebulizer) 1 Each Each, EACH , #1 Prov:KESHA OBREGON MD 09/27/18 Albuterol Sulfate* (Proair HFA*) 8.5 Gm Hfa.aer.ad, 2 PUFF INH Q4, #1 INHALER Prov:KESHA OBREGON MD 09/27/18 Prednisone* (Prednisone*) 20 Mg Tab, 40 MG PO DAILY for 4 Days, TAB Prov:KESHA OBREGON MD 09/27/18 Albuterol Sulfate* (Albuterol Sulfate* Neb) 0.083%-3 Ml Neb, 2.5 MG NEB Q4 PRN for SHORTNESS OF BREATH, #30 EA Prov:KESHA OBREGON MD 09/27/18 Albuterol Sulfate* (Proair HFA*) 8.5 Gm Hfa.aer.ad, 2 PUFF INH Q4, #1 INHALER Prov:KESHA OBREGON MD 08/31/18 Prednisone* (Prednisone*) 20 Mg Tab, 60 MG PO DAILY for 4 Days, TAB Prov:KESHA OBREGON MD 08/31/18 Azithromycin* (Zithromax*) 250 Mg Tablet, 250 MG PO .DIA DIRECTED, #6 TAB TAKE 500 MG (2 TABS) THE FIRST DAY THEN 250 MG (1 TAB) DAYS 2-5 Prov:KESHA BOREGON MD 08/31/18 Albuterol Sulfate* (Proair HFA*) 8.5 Gm Hfa.aer.ad, 2 PUFF INH Q4H PRN for WHEEZING AND SOB, #1 INHALER Prov:KESHA OBREGON MD 07/25/18 Prednisone* (Prednisone*) 20 Mg Tab, 60 MG PO DAILY for 5 Days, TAB Prov:KESHA OBREGON MD 07/25/18 Sulfamethoxazole/Trimethoprim* (Bactrim Ds* Tablet) 1 Each Tablet, 1 TAB PO BID, #20 TAB Prov:KESHA OBREGON MD 07/25/18 Sodium Chloride (Saline Nasal Powderly) 30 Ml Powderly, 30 ML NS BID PRN for NASAL CONGESTION, #1 BOTTLE Prov:ТАТЬЯНА JUNIOR DO 06/06/18 D-Methorphan Hb/P-Epd HCl/Bpm (Ptfdkywajd-Qmqujxrtqoy-Bv Syr) 118 Ml Syrup, 5 ML PO Q4H PRN for COUGH, #1 BOTTLE Prov:ТАТЬЯНА JUNIOR DO 06/06/18 Acetaminophen* (Tylenol*) 500 Mg Tab, 500 MG PO Q4H PRN for MILD PAIN LEVEL 1-3, #30 TAB Prov:ТАТЬЯНА JUNIOR DO 06/06/18 Ibuprofen* (Motrin*) 600 Mg Tab, 600 MG PO Q6H PRN for PAIN AND OR ELEVATED TEMP, #30 TAB Prov:ТАТЬЯНА JUNIOR DO 06/06/18 Ibuprofen* (Motrin*) 600 Mg Tab, 600 MG PO Q6, #15 TAB Prov:JE JIMENEZ MD 05/14/18 Sulfamethoxazole/Trimethoprim* (Bactrim Ds* Tablet) 1 Each Tablet, 1 TAB PO BID for 5 Days, #10 TAB Prov:JE JIMENEZ MD 05/14/18 Albuterol Sulfate* (Ventolin HFA*) 18 Gm Hfa.aer.ad, 2 PUFF INHALATION Q4H, #1 INHALER Prov:JE JIMENEZ MD 05/10/18 Sulfamethoxazole/Trimethoprim* (Bactrim Ds* Tablet) 1 Each Tablet, 1 TAB PO BID for 7 Days, #14 TAB Prov:JE JIMENEZ MD 05/10/18 Prednisone* (Prednisone*) 20 Mg Tab, 40 MG PO DAILY for 4 Days, TAB Start May 11, 2018 Prov:JE JIMENEZ MD 05/10/18 Guaifenesin* (Tussin*) 100 Mg/5 Ml Syrup, 200 MG PO Q6 PRN for COUGH for 3 Days, ML Prov:LIZETTE SZYMANSKI 01/15/18 Albuterol Sulfate* (Ventolin HFA*) 18 Gm Hfa.aer.ad, 2 PUFF INHALATION Q4H, #1 INHALER Prov:LIZETTE SZYMANSKI 01/15/18 Methylprednisolone* (Medrol* DOSE PACK) 4 Mg/Dose-Pack Tab.ds.pk, 4 MG PO . DIRECTED for 6 Days, PACKET Prov:LIZETTE SZYMANSKI 01/15/18 Albuterol Sulfate* (Proair HFA*) 8.5 Gm Hfa.aer.ad, 2 PUFF INH Q4, #1 INHALER Prov:JE JIMENEZ MD 05/03/17 Prednisone* (Prednisone*) 20 Mg Tab, 60 MG PO DAILY for 5 Days, TAB 60 mg by mouth for 2 days, then 40 mg of mouth for 3 days. Start May 04, 2017 Prov:JE JIMENEZ MD 05/03/17 Albuterol Sulfate* (Ventolin HFA*) 18 Gm Hfa.aer.ad, 2 PUFF INHALATION Q4H for 5 Days, #1 INHALER Prov:JE JIMENEZ MD 11/29/16 Prednisone* (Prednisone*) 20 Mg Tab, 60 MG PO DAILY for 6 Days, #15 TAB 60 mg by mouth for 3 days then 40 mg by mouth for 3 days. Start November 30, 2016 Prov:JE JIMENEZ MD 11/29/16 Cetirizine Hcl* (Zyrtec*) 10 Mg Capsule, 10 MG PO DAILY, #30 TAB.CHEW Prov:GOLDIE CHEN NP 09/11/16 Dhexivqhjlf-M-Meqzhfejjx Hb* (Guaifenesin* DM Syrup) 120 Ml Syrup, 10 ML PO Q4H PRN for COUGH, #120 ML Prov:GOLDIE CHEN CHEMICALS DISTILLER 09/11/16 Prednisone* (Prednisone*) 50 Mg Tablet, 50 MG PO DAILY for 5 Days, TAB Prov:GOLDIE CHEN CHEMICALS DISTILLER 09/11/16 Beclomethasone Dip (Qvar 40) 1 Puff Inha, 2 PUFF INH BID, #1 INHALER Prov:GOLDIE CHEN NP 09/11/16 Albuterol Sulfate* (Proair HFA*) 8.5 Gm Hfa.aer.ad, 2 PUFF INH Q4H PRN for WHEEZING AND SOB, #1 INHALER Prov:GOLDIE CHEN NP 09/11/16 Prednisone* (Prednisone*) 20 Mg Tab, 40 MG PO DAILY for 3 Days, TAB Prov:LIZETTE SZYMANSKI 09/03/16 Albuterol Sulfate* (Proair HFA*) 8.5 Gm Hfa.aer.ad, 2 PUFF INH Q4, #1 INHALER Prov:LIZETTE SZYMANSKI 09/03/16 Sulfamethoxazole-Trimethoprim (Bactrim DS Tablet) 800-160 Mg Tab, 2 TAB PO BID for 14 Days, TAB Prov:BETTYE BASS I. CHEMICALS DISTILLER 02/28/15 Amoxicillin/Potassium Clav (AMOXICILLIN-CLAV ER 1,000-62.5) 1 Each Tab.er.12h, 2 EACH PO BID for 14 Days Prov:BETTYE BASS I. CHEMICALS DISTILLER 02/28/15 Reported Medications Albuterol Sulfate* (Albuterol Sulfate* Neb) 20 Ml Nebu, 20 ML IH 10/09/12 Allergies Allergies: Coded Allergies: Penicillins (Verified Allergy, Unknown, rash, 09/27/18) PMhx/Soc History of Surgery: Yes (CS X1 ) Anesthesia Reaction: No Hx Neurological Disorder: No Hx Respiratory Disorders: Yes (ASTHMA) Hx Cardiac Disorders: No Hx Psychiatric Problems: No Hx Miscellaneous Medical Probl: Yes ( DM) Hx Alcohol Use: Yes (Socially) Hx Substance Use: No Hx Tobacco Use: No FmHx Family History: diabetes; No coronary disease, No other Physical Exam Vitals Vital Signs Date Temp Pulse Resp B/P (MAP) Pulse Ox O2 O2 Flow FiO2 Time Delivery Rate 11/09/18 97.7 105 18 123/65 95 Room Air 20:39 (84) 11/09/18 74 20 94 21 19:57 11/09/18 98.7 85 18 106/56 91 Room Air 19:41 (73) 11/09/18 80 20 96 21 18:19 11/09/18 98.0 105 18 141/76 95 16:52 (97) Physical Exam GENERAL: The patient is well-appearing, well-nourished, in no acute distress NECK: There is no cervical lymphadenopathy. CHEST: Equal lung expansion, severe wheezing noted throughout upper and lower lung hopper. HEART: Regular rate and rhythm. ABDOMEN: Soft, nontender EXTREM: No cyanosis NEUROLOGIC: Alert and oriented. Results 24 hrs Current Medications Medications Dose Sig/Yelena Start Time Status Last (Trade) Ordered Route PRN Stop Time Admin Dose Reason Admin Albuterol 10 mg ONCE STAT 11/09/18 DC 11/09/18 (Proventil INH 18:05 11/09/18 18:18 0.5% (Neb)) 18:07 10 mg ONCE STAT 11/09/18 DC 11/09/18 Dexamethasone IM 19:04 11/09/18 19:25 (Decadron) 19:06 Albuterol 5 mg ONCE STAT 11/09/18 DC 11/09/18 (Proventil HHN 19:41 11/09/18 19:55 0.083% (Neb)) 19:42 Ipratropium 0.5 mg ONCE ONCE 11/09/18 DC 11/09/18 [place] HHN 20:00 11/09/18 19:55 (Atrovent 20:01 0.02% (Neb)) Procedures/MDM ED COURSE: The patient was stable throughout ED course. I kept the patient informed of laboratory and diagnostic imaging results throughout the ED course. DIAGNOSTIC IMAGING: Read by radiologist. PROCEDURE: Chest x-ray CLINICAL INDICATION: Asthma exacerbation TECHNIQUE: Chest single view COMPARISON: None FINDINGS: The heart is normal in size. The pulmonary vessels are normal in caliber. The lungs are clear. The costophrenic angles are sharp. The visualized bony thorax is unremarkable. Mild calcification of the right rotator cuff insertion IMPRESSION: No acute cardiopulmonary disease. RPTAT: HH .Chris Hudson MD, MD Date Time Electronically viewed and signed by .Chris Hudson MD, on 11/09/2018 18:49 PROCEDURES: Breathing treatment MEDICATIONS GIVEN: Oxygen, albuterol, Dexamethasone Patient tolerated medication well with no adverse reactions. Patient reported improvement in pain. MEDICAL DECISION MAKING: Patient is a 48 year old female with a hx of asthma presenting with wheezing and coughing x 2 weeks. Pt recently finished Prednisone 10 mg po x 5 days with no relief of her wheezing symptoms. She also has an Albuterol inhaler which she uses 2 x per day. During exam, pt showed severe wheezing but still had an O2 sat of 95 %. A breathing treatment was given to the patient which resulting in significantly reduced wheezing and feeling much better as reported by the patient. In addition, the patient was given a Dexamethasone injection as she said that has helped her in the past with previous asthma exacerbations. Pt reports history of DM but states steroids do not elevate her sugar levels too dramatically.History and Physical along with other data not c/w emergent process including pneumonia, PE, abscess, pleural effusion or pneumothorax. Vital signs were reviewed. Patient is afebrile. Patient was not hypoxic. Patient was hemodynamically stable. PRESCRIPTION: Prednisone, Azithromycin, Symbicort, Tessalon Pearls, DISCHARGE: At this time, patient is stable for discharge and outpatient management. I have instructed the patient to follow-up with his/her primary care physician in 1-2 days. I have discussed with the patient the possibility of needing to see a specialist for further workup and imaging studies if symptoms persist. I have in structed the patient to promptly return to the ER for any new or worsening symptoms including increased pain, fever, nausea, vomiting, weakness or LOC. The patient and/or family expressed understanding of and agreement with this plan. All questions were answered. Home care instructions were provided. Disclaimer: Inadvertent spelling and grammatical errors are likely due to EHR/di ctation software use and do not reflect on the overall quality of patient care. Also, please note that the electronic time recorded on this note does not necessarily reflect the actual time of the patient encounter. Departure Diagnosis: Primary Impression: Asthma exacerbation Asthma severity: moderate Asthma persistence: persistent Qualified Codes: J45.41 - Moderate persistent asthma with (acute) exacerbation Condition: Fair Patient Instructions: Asthma Referrals: [facility] [place] () Additional Instructions: Continue using Albuterol daily as needed. Finish Predisone and use Symbiort 2x daily. Follow up with PCP. Report back to ER if symptoms worsen, do not improve, hard to breath, sudden onset of fever, shortness of breath. Llame al doctor MAANA y markus harshad JOSE MANUEL PARA DENTRO DE 1-2 LENNON.Dgale a la secretaria que nosotros le instruimos hacer esta jose manuel.Avise o llame si gruber condicin se empeora antes de la jose manuel. Regresa aqui si peor o no mejor. BENNIE BAZZI PA-C Nov 09, 2018 18:51
[2018-11-09] MEDS ORDERED: DEXAMETHASONE 10 MG/ML 1 ML INJ IM STA (19:04)
[2018-11-09] MEDS ORDERED: BENZ-6 PO (19:13)
[2018-11-09] MEDS ORDERED: PRED50TA PO (19:17)
[2018-11-09] MEDS ORDERED: AZIT500T3 PO (19:18)
[2018-11-09] MEDS ORDERED: BUDE6.9H INHALATION (19:20)
[2018-11-09] MEDS ORDERED: PRED20TA PO (19:20)
[2018-11-09] MEDS ORDERED: ALBUTEROL 0.083% (NEB) 2.5 MG/3 ML AMP HHN STA (19:41)
[2018-11-09] MEDS ORDERED: IPRATROPIUM (NEB) 0.5 MG/2.5 ML AMP HHN ONE (20:00)
[2018-11-09 20:39] VITALS: BP 123/65; PULSE 105; RESP 18
== END 2018-11-09 20:39 | disposition home or self-care (01) ==
LOC: FTE 16:27
DX: J45.41 Moderate persistent asthma with (acute) exacerbation (principal); E11.9 Type 2 diabetes mellitus without complications
CPT/HCPCS: 71045; 94644; 96372; J1100; Z7502; Z7610